=== PATIENT | male | born 1985 | race Caucasian/White ===

== ENCOUNTER 2020-03-03 23:04 | Emergency (ER) | payer BC ==
[~2020-03-03] VITALS: Ht 188 cm; Wt 113.6 kg
[2020-03-03 23:09] VITALS: BP 140/90; TEMP 98
[2020-03-04 00:30] VITALS: PULSE 97
== END 2020-03-04 00:30 | disposition home or self-care (01) ==
LOC: COL.ER 23:04
DX: S61.012A Laceration without foreign body of left thumb without damage to nail, initial encounter (principal); W25.XXXA Contact with sharp glass, initial encounter

== ENCOUNTER → 2020-03-19 | Outpatient (CLI) | payer BC ==
[2020-03-19 16:43] VITALS: BP 134/71; PULSE 96; TEMP 97.7
== END ==
LOC: COL.ER 16:34
DX: Z48.02 Encounter for removal of sutures (principal)